=== PATIENT | female | born 1995 ===

== ENCOUNTER 2017-02-15 12:22 | Inpatient (IN) | payer MEDICAID, OTHER ==
[2017-02-15] MEDS ORDERED: Sodium Chloride 0.9% 1,000 ML IV STA (13:30)
[2017-02-15] MEDS ORDERED: Morphine 4 MG/ML VIAL ONE (13:35)
--- NOTE | 2017-02-15 13:43 | C.PDOC ---
History Of Present Illness Patient is a 21 year old female, with PMHx of anemia, asthma, bipolar disorder, presents to ED for evaluation of sudden onset of generalized abdominal pain associated with 3 episodes of bloody, non-bilious vomiting, and bloody diarrhea that developed this morning. Pt states that she only drank coffee this morning, and suddenly experienced these symptoms. Denies having similar symptoms in the past. LMP: 02/03/17. Denies fever, chest pain, or shortness of breath. Time Seen by Provider: 02/15/17 13:04 Chief Complaint (Nursing): Abdominal Pain History Per: Patient History/Exam Limitations: no limitations Current Symptoms Are (Timing): Still Present Radiation Of Pain To:: None Quality Of Discomfort: "Pain" Associated Symptoms: Nausea, Vomiting, Diarrhea. denies: Fever, Chills, Loss Of Appetite, Back Pain, Chest Pain, Constipation Exacerbating Factors: None Alleviating Factors: None Last Bowel Movement: Today Recent travel outside of the [place]: No Additional History Per: Patient Abnormal Vaginal Bleeding: No Past Medical History Reviewed: Historical Data, Nursing Documentation, Vital Signs Vital Signs: Last Vital Signs Temp 98.0 F 02/15/17 16:02 Pulse 73 02/15/17 18:34 Resp 16 02/15/17 18:34 BP 129/89 02/15/17 18:34 Pulse Ox 100 02/15/17 18:34 - Medical History PMH: Anemia, Asthma, Bipolar Disorder, Sexually Transmitted Disease (Chlamydia) Denies: Chronic Kidney Disease - [facility] Procedures INFLUENZA VACCINATION (05/13/14) Family History: States: Unknown Family Hx - Social History Hx Tobacco Use: Yes Hx Alcohol Use: Yes Hx Substance Use: Yes (marijuana) - Immunization History Hx Tetanus Toxoid Vaccination: No Hx Influenza Vaccination: No Hx Pneumococcal Vaccination: No Review Of Systems Except As Marked, All Systems Reviewed And Found Negative. Constitutional: Negative for: Fever, Chills Gastrointestinal: Positive for: Nausea, Vomiting, Abdominal Pain, Diarrhea Genitourinary: Positive for: Dysuria. Negative for: Frequency, Hematuria Musculoskeletal: Negative for: Back Pain Physical Exam - Physical Exam Additional Physical Exam Comments: Constitutional: Hysterical. Head: Normocephalic. Atraumatic. Eyes: PERRL. ENT: Moist mucous membranes. Neck: Supple. Cardiovascular: Regular rate. Radial pulse 2+ bilaterally. Chest: No tenderness. Respiratory: Clear to auscultation bilaterally. GI: Soft. Diffuse tenderness. Voluntary guarding. Nondistended. Rectal: Multiple hemorrhoids, no active bleeding, no thrombosed hemorrhoids. Back: No CVA tenderness. Musculoskeletal: No tenderness or swelling of extremities. Skin: No rash. Neurologic: Alert, no focal deficit. ED Course And Treatment - Laboratory Results Result Diagrams: 02/15/17 13:35 02/15/17 13:35 O2 Sat by Pulse Oximetry: 100 Medical Decision Making Medical Decision Making: Plan: * Blood work * Urinalysis * Abd & Pelvis CT * Morphine, IV fluids, Zofran * Reassess Progress note: Pelvis transvag US HISTORY: lower pelvic pain, r/o cyst vs torsion COMPARISON: None available. TECHNIQUE: Transabdominal and transvaginal FINDINGS: UTERUS: Measures 9.1 x 4.6 x 6.7 cm. Normal in size and appearance. No fibroid or other mass lesion seen. ENDOMETRIUM: Measures 22 mm in diameter. This is thickened. Please correlate with stage of menstrual cycle. No endometrial fluid. CERVIX: No cervical abnormality identified. RIGHT OVARY: Measures 4.3 x 2.6 x 3.7 cm. No solid mass. Normal flow. LEFT OVARY: Measures 3.6 x 3.2 x 3.4 cm. 2.5 cm simple cysts, likely physiologic. Normal flow. FREE FLUID: No significant free fluid noted. OTHER FINDINGS: None. IMPRESSION: No evidence of ovarian torsion. Unremarkable examination. Abd & Pelvis CT PROCEDURE: CT abdomen pelvis dated 02/15/2017. HISTORY: RLQ pain COMPARISON: Comparison made with prior CT scan of the abdomen and pelvis 03/25/2016 TECHNIQUE: Contiguous axial images of the pelvis performed in standard fashion following intravenous injection of approximately 100 cc of Visipaque 320 contrast material. . Oral contrast non not given. Coronal and Sagittal reformats generated. Radiation dose: Total exam DLP = 198.3 mGy-cm. This CT exam was performed using one or more of the following dose reduction techniques: Automated exposure control, adjustment of the mA and/or kV according to patient size, and/or use of iterative reconstruction technique. FINDINGS: LOWER THORAX: Lung bases clear. No infiltrate effusion or basilar pneumothorax. LIVER: The liver exhibits normal size measuring approximately 15.5 cm in CC dimension. Minor diffuse fatty hepatic infiltration. No obvious hepatic mass collection or calcification. Portal and splenic veins are opacified. GALLBLADDER AND BILE DUCTS: Gallbladder is physiologically distended. No evidence of intraluminal gallbladder calculi. PANCREAS: The pancreas appears unremarkable without mass collection or calcification. SPLEEN: Spleen exhibits normal size and attenuation pattern without mass collection or calcification ADRENALS: No adrenal lesions. KIDNEYS AND URETERS: Kidneys demonstrate symmetric nephrograms. No evidence of nephrolithiasis or hydronephrosis. BLADDER: Urinary bladder is appears incompletely distended which may account for slight thick-walled appearance ; rule out cystitis. No evidence of intraluminal urinary bladder calculi Prominent left ovary. Consider followup pelvic ultrasound. REPRODUCTIVE: The at endometrium is somewhat prominent felt to be secondary to the service secretary phase of the endometrial cycle. APPENDIX: What is felt to represent a normal partially air-filled appendix is best seen on coronal image number [id number]. No periappendiceal inflammatory changes. BOWEL: Evaluation of the bowel is limited due to the lack of oral contrast material. Stomach is incompletely distended which may account for slight thick-walled appearance. Visualized loops of small bowel exhibit normal contour and caliber. . . Large bowel appears grossly unremarkable with no definitive evidence of abnormal mural wall thickening. PERITONEUM: Unremarkable. No fluid collection. No free air. LYMPH NODES: Unremarkable. No enlarged lymph nodes. VASCULATURE: Unremarkable. No aortic aneurysm. BONES: No fracture or destructive lesion. OTHER FINDINGS: None. IMPRESSION: Mild wall thickening of the urinary bladder could be due to underdistention however possibility of cystitis should be excluded. Mild fatty hepatic infiltration. Prominent left ovary. . Consider followup pelvic ultrasound if indicated. Dr. Messer accepts patient to medical service. History of GI bleeding with anemia. Consult placed for GI [facility]. Dr. Messer also recommends consultation with Heme Onc with Dr. Sandhu, but could not find physician in directory. Will defer consultation to Dr. Messer. Clear liquid diet ordered. Disposition Discussed With : Malissa Messer Doctor Will See Patient In The: Hospital - Disposition Referrals: [facility] [Outside] Disposition: HOME/ ROUTINE Disposition Time: 17:35 Condition: FAIR Instructions: Ovarian Cyst (ED) Forms: [facility] (Serbian) - Clinical Impression Clinical Impression: Ovarian cyst, Anemia, GI bleed - Scribe Statement The provider has reviewed the documentation as recorded by the Rebecca Montelongo All medical record entries made by the Rebecca were at my direction and personally dictated by me. I have reviewed the chart and agree that the record accurately reflects my personal performance of the history, physical exam, medical decision making, and the department course for this patient. I have also personally directed, reviewed, and agree with the discharge instructions and disposition.
[2017-02-15 13:52] LABS: BASO # 0.1 K/uL (0.0-0.2); BASO % 0.9 % (0.0-2.0); EOS % 0.5 % (0.0-4.0); HEMATOCRIT 25.6 % (34.0-47.0); LYMPH # 0.9 K/uL (1.0-4.3); LYMPH % 13.4 % (20.0-40.0); MEAN CELL VOLUME 54.3 fL (81.0-99.0); MEAN CORPUSCULAR HGB CONC 27.6 g/dL (33.0-37.0); MEAN PLATELET VOLUME 9.3 fL (7.2-11.7); MONO # 0.4 K/uL (0.0-0.8); MONO % 6.5 % (0.0-10.0); RED CELL DISTRIBUTION WIDTH 19.2 % (11.5-14.5); WHITE BLOOD COUNT 6.6 K/uL (4.8-10.8)
[2017-02-15 13:59] LABS: CHLORIDE 103 mmol/L (98-107); SODIUM 136 mmol/L (132-148)
[2017-02-15 14:00] LABS: POTASSIUM 3.6 mmol/L (3.6-5.2)
[2017-02-15 14:01] LABS: GFR AFRICAN-AMERICAN > 60
[2017-02-15 14:02] LABS: ALB/GLOB RATIO 1.2 (1.0-2.1); ALKALINE PHOSPHATASE 62 U/L (38-126); ALT/SGPT 29 U/L (9-52); AST/SGOT 21 U/L (14-36); BILIRUBIN,TOTAL 0.6 mg/dL (0.2-1.3); BLOOD UREA NITROGEN 13 mg/dL (7-17); CARBON DIOXIDE 18 mmol/L (22-30); GLUCOSE,RANDOM 89 mg/dL (65-105); TOTAL PROTEIN 9.1 g/dL (6.3-8.3)
[2017-02-15 14:03] LABS: RBC URINE 442 /hpf (0-3); URINE BILIRUBIN NEGATIVE (NEGATIVE); URINE BLOOD 3+ (NEGATIVE); URINE COLOR Yellow (YELLOW); URINE GLUCOSE (UA) NORMAL (Normal); URINE KETONE TRACE mg/dL (NEGATIVE); URINE LEUKOCYTE ESTERASE TRACE Leu/uL (Negative); URINE PROTEIN 1+ mg/dL (NEGATIVE); WBC URINE 9 /hpf (0-5)
[2017-02-15] MEDS ORDERED: Iodixanol 320 MG/ML 100 ML BOTTLE IV ONE (14:37)
--- NOTE | 2017-02-15 15:45 | CT ---
PROCEDURE: CT abdomen pelvis dated 02/15/2017. HISTORY: RLQ pain COMPARISON: Comparison made with prior CT scan of the abdomen and pelvis 03/25/2016 TECHNIQUE: Contiguous axial images of the pelvis performed in standard fashion following intravenous injection of approximately 100 cc of Visipaque 320 contrast material. . Oral contrast non not given. Coronal and Sagittal reformats generated. Radiation dose: Total exam DLP = 198.3 mGy-cm. This CT exam was performed using one or more of the following dose reduction techniques: Automated exposure control, adjustment of the mA and/or kV according to patient size, and/or use of iterative reconstruction technique. FINDINGS: LOWER THORAX: Lung bases clear. No infiltrate effusion or basilar pneumothorax. LIVER: The liver exhibits normal size measuring approximately 15.5 cm in CC dimension. Minor diffuse fatty hepatic infiltration. No obvious hepatic mass collection or calcification. Portal and splenic veins are opacified. GALLBLADDER AND BILE DUCTS: Gallbladder is physiologically distended. No evidence of intraluminal gallbladder calculi. PANCREAS: The pancreas appears unremarkable without mass collection or calcification. SPLEEN: Spleen exhibits normal size and attenuation pattern without mass collection or calcification ADRENALS: No adrenal lesions. KIDNEYS AND URETERS: Kidneys demonstrate symmetric nephrograms. No evidence of nephrolithiasis or hydronephrosis. BLADDER: Urinary bladder is appears incompletely distended which may account for slight thick-walled appearance ; rule out cystitis. No evidence of intraluminal urinary bladder calculi Prominent left ovary. Consider followup pelvic ultrasound. REPRODUCTIVE: The at endometrium is somewhat prominent felt to be secondary to the pocket secretary assembler phase of the endometrial cycle. APPENDIX: What is felt to represent a normal partially air-filled appendix is best seen on coronal image number [id number]. No periappendiceal inflammatory changes. BOWEL: Evaluation of the bowel is limited due to the lack of oral contrast material. Stomach is incompletely distended which may account for slight thick-walled appearance. Visualized loops of small bowel exhibit normal contour and caliber. . . Large bowel appears grossly unremarkable with no definitive evidence of abnormal mural wall thickening. PERITONEUM: Unremarkable. No fluid collection. No free air. LYMPH NODES: Unremarkable. No enlarged lymph nodes. VASCULATURE: Unremarkable. No aortic aneurysm. BONES: No fracture or destructive lesion. OTHER FINDINGS: None. IMPRESSION: Mild wall thickening of the urinary bladder could be due to underdistention however possibility of cystitis should be excluded. Mild fatty hepatic infiltration. Prominent left ovary. . Consider followup pelvic ultrasound if indicated.
--- NOTE | 2017-02-15 17:32 | US ---
HISTORY: lower pelvic pain, r/o cyst vs torsion COMPARISON: None available. TECHNIQUE: Transabdominal and transvaginal FINDINGS: UTERUS: Measures 9.1 x 4.6 x 6.7 cm. Normal in size and appearance. No fibroid or other mass lesion seen. ENDOMETRIUM: Measures 22 mm in diameter. This is thickened. Please correlate with stage of menstrual cycle. No endometrial fluid. CERVIX: No cervical abnormality identified. RIGHT OVARY: Measures 4.3 x 2.6 x 3.7 cm. No solid mass. Normal flow. LEFT OVARY: Measures 3.6 x 3.2 x 3.4 cm. 2.5 cm simple cysts, likely physiologic. Normal flow. FREE FLUID: No significant free fluid noted. OTHER FINDINGS: None. IMPRESSION: No evidence of ovarian torsion. Unremarkable examination.
[2017-02-15] MEDS ORDERED: HYDROmorphone 0.5 mg/0.5 ml ISec IVP PRN (23:44)
[2017-02-15] MEDS ORDERED: Sodium Chloride 0.9% 1,000 ML IV SCH (23:45)
[2017-02-16 00:25] VITALS: BP 96/60; PULSE 70; RESP 20; TEMP 98; O2SAT 100
[2017-02-16] MEDS ORDERED: metroNIDAZOLE IV 500 mg/100 ml 500 MG/100 ML BAG IVPB SCH (01:00)
--- NOTE | 2017-02-16 10:32 | HP ---
CHIEF COMPLAINT: Abdominal pain. HISTORY OF PRESENT ILLNESS: Ms. Flor Garrett is a 21-year-old lady with past medical history of anemia, asthma and bipolar disorder who came to the emergency room for evaluation of sudden onset of generalized abdominal pain associated with 3 episodes of bloody nonbilious vomiting and bloody diarrhea that developed this morning. The patient states that she only drank coffee this morning and suddenly experienced these symptoms and denies having similar symptoms in the past. Last menstrual period was 02/03/2017. Denies fever or chills. No shortness of breath. The patient was seen in the hallway of the [facility] ER, her was on the bedside also. PAST MEDICAL HISTORY: Anemia, asthma, bipolar, sexually transmitted disease, Chlamydia. FAMILY HISTORY: Father and mother, noncontributory. HABITS: Tobacco; yes. Alcohol; yes. SUBSTANCE ABUSE: Yes marijuana. REVIEW OF SYSTEMS: The patient was seen and examined at the bedside in the emergency room, complaining about abdominal pain and nauseous, vomiting and diarrhea. No fever and no chills. Positive for dysuria. Negative frequency and hematuria, No back pain. PHYSICAL EXAMINATION: VITAL SIGNS: Temperature is 98, pulse is 73, respiratory rate is 15, and blood pressure is 120/89. HEENT: Head is normocephalic and atraumatic. Eyes: PERRLA. Extraocular muscles intact. Conjunctivae clear. Nose patent. Mucous membranes are moist. NECK: Supple. No carotid bruits. No JVD or thyromegaly. CHEST: Bilaterally symmetrical. HEART: S1 and S2 positive. LUNGS: Clear to auscultation. ABDOMEN: Soft. Tenderness all in 4 quadrants, voluntary guarding, and nondistended. No organomegaly. EXTREMITIES: No edema and no cyanosis. NEUROLOGIC: The patient is awake, alert, and moving all 4 extremities. No focal deficit. LABORATORY DATA: White blood cells of 6.6, hemoglobin of 7.1, hematocrit of 25.6, and platelets of 297. Sodium of 133, potassium of 3.6, BUN of 13, creatinine of 0.5, and glucose of 89. ASSESSMENT AND PLAN: Ms. Flor Garrett is a 21-year-old lady with anemia who came with intractable abdominal pain. Transabdominal and transvaginal ultrasound done. No evidence of ovarian torsion, unremarkable examination. No free fluid. CAT scan of the abdomen done which shows mild wall thickening of the urinary bladder could be due to undescended; however, possibility of cystitis should be excluded, mild fatty hepatic infiltrates, prominent left ovary. Gastrointestinal consult called with Dr. Nain Sherwood, and Hematology consult called with Dr. Yarbrough. Started clear liquid diet. Transvaginal ultrasound was canceled. The patient is having history of bipolar. Psychiatry consult called with Dr. Patricio Quintero also. Started hydromorphone, Protonix, NS, and Zofran. I will start antibiotics also. Repeat labs. Gastrointestinal and deep venous thrombosis prophylaxis. We will follow. Malissa Messer MD
--- NOTE | 2017-02-18 00:43 | DS ---
The patient is a 21-year-old female The patient was admitted on 02/15/2017 and left against medical advice last night. The patient was educated to stay home and got complete the treatment, but the patient refused. For more details see pasquale [facility]. Malissa Messer MD
== END 2017-02-16 01:45 | disposition left against medical advice (07) | DRG 175 ==
LOC: C.ER 12:22 → C.9E 18:30 → C.3T 20:43
PROVIDERS: ADMIT Internal Medicine; ATTEND Internal Medicine
DX: K92.0 Hematemesis (principal); D64.9 Anemia, unspecified; N83.209 Unspecified ovarian cyst, unspecified side; R19.7 Diarrhea, unspecified; F31.9 Bipolar disorder, unspecified; J45.909 Unspecified asthma, uncomplicated; F17.210 Nicotine dependence, cigarettes, uncomplicated; F10.10 Alcohol abuse, uncomplicated; F12.10 Cannabis abuse, uncomplicated; Z86.19 Personal history of other infectious and parasitic diseases

== ENCOUNTER 2017-02-16 01:58 | Inpatient (IN) | payer OTHER ==
[2017-02-16 02:36] VITALS: O2SAT 100
--- NOTE | 2017-02-16 03:45 | C.PDOC ---
History Of Present Illness 21 year old female who was admitted earlier today for GI bleed and anemia with a hemoglobin of 7.0. Patient states she had a misunderstanding with the staff on the floor and left the hospital; but reports she was called and told to come to the ER for readmission. Denies new complaints at this time. Time Seen by Provider: 02/16/17 02:24 Chief Complaint (Nursing): Abdominal Pain History Per: Patient History/Exam Limitations: no limitations Onset/Duration Of Symptoms: Hrs Current Symptoms Are (Timing): Still Present Location Of Pain/Discomfort: Diffuse Radiation Of Pain To:: None Quality Of Discomfort: Unable To Describe Associated Symptoms: Nausea, Vomiting, Diarrhea. denies: Fever, Chills Exacerbating Factors: None Alleviating Factors: None Recent travel outside of the [place]: No Abnormal Vaginal Bleeding: No Past Medical History Reviewed: Historical Data, Nursing Documentation, Vital Signs Vital Signs: Last Vital Signs Temp 98.3 F 02/16/17 04:55 Pulse 69 02/16/17 04:55 Resp 20 02/16/17 04:55 BP 106/65 02/16/17 04:55 Pulse Ox 100 02/16/17 04:55 - Medical History PMH: Anemia, Asthma, Bipolar Disorder, Personality Disorder (multiple personality disorder), Sexually Transmitted Disease (Chlamydia) Surgical History: No Surg Hx - [facility] Procedures INFLUENZA VACCINATION (05/13/14) Family History: States: Unknown Family Hx - Social History Hx Tobacco Use: Yes Hx Alcohol Use: Yes Hx Substance Use: Yes (marijuana) - Immunization History Hx Tetanus Toxoid Vaccination: Yes Hx Influenza Vaccination: Yes Hx Pneumococcal Vaccination: Yes Review Of Systems Constitutional: Negative for: Fever, Chills Gastrointestinal: Positive for: Nausea, Vomiting, Abdominal Pain, Diarrhea Physical Exam - Physical Exam Appears: Non-toxic Skin: Normal Color, Warm, Dry, No Rash Head: Atraumatic, Normacephalic Eye(s): bilateral: Normal Inspection, PERRL, EOMI Oral Mucosa: Moist Neck: Normal, Supple Chest: Symmetrical, No Tenderness Cardiovascular: Rhythm Regular, No Friction Rub, No Murmur Respiratory: Normal Breath Sounds, No Rales, No Rhonchi, No Wheezing Gastrointestinal/Abdominal: Bowel Sounds (active), Soft, Tenderness (Diffuse), Guarding (Voluntary), No Rebound Back: No CVA Tenderness Extremity: Normal ROM Neurological/Psych: Oriented x3, Normal Speech, Normal Cognition, Normal Motor, Normal Sensation Gait: Steady ED Course And Treatment O2 Sat by Pulse Oximetry: 100 (Room air) Pulse Ox Interpretation: Normal Medical Decision Making Medical Decision Making: Morphine administered. Patient readmitted to floor. Disposition - Disposition Disposition: HOME/ ROUTINE Disposition Time: 03:45 Condition: FAIR - Clinical Impression Clinical Impression: GI bleed, Anemia - Scribe Statement The provider has reviewed the documentation as recorded by the Scribclaribel Higuera All medical record entries made by the Rebecca were at my direction and personally dictated by me. I have reviewed the chart and agree that the record accurately reflects my personal performance of the history, physical exam, medical decision making, and the department course for this patient. I have also personally directed, reviewed, and agree with the discharge instructions and disposition.
[2017-02-16 05:11] VITALS: RESP 20
[2017-02-16 08:54] LABS: IRON 11 ug/dL (37-170)
[2017-02-16] MEDS ORDERED: Sodium Chloride 0.9% 1,000 ML IV SCH (09:00)
[2017-02-16] MEDS: HYDROmorphone 0.5 mg/0.5 ml ISec IVP PRN ×3 (09:26→17:44)
[2017-02-16 09:27] LABS: CHOLESTEROL 106 mg/dL (0-199)
--- NOTE | 2017-02-16 10:40 | CP.PCM.CON ---
<Susan Fuentes - Last Filed: 02/16/17 18:21> History of Present Illness - History of Present Illness History of Present Illness: Gastroenterology Fellow/PGY5 Consult Note 21 year old female with history of iron deficiency anemia, dysmenorrhea/ menorrhagia, BiPolar disorder, Personality disorder, Protein C/S deficiecy 2015 , and constipation presenting with diarrhea and vomiting. Patient notes having multiple episodes of bloody diarrhea and hematemesis with associated diffuse abdominal pain. No further episodes since admission. Denies constipation, melena , unintentional weight loss, fever, chills, sweats, back pain, eye pain/redness , kidney stones, mouth ulcers, or skin sores. Last menstrual period ending February 03 with menorrhagia. She states she was told she needed iron infusions and gynecology evaluation in the past but didn't follow through due to lack of insurance. No prior EGD or colonoscopy. Family- denies stomach cancer, colon cancer Social- marijuana use; denies tobacco/alcohol use Surgery-none Review of Systems - Review of Systems Review of Systems: 12-point review of systems negative except for as above Past Patient History - Infectious Disease Hx of Infectious Diseases: None - Tetanus Immunizations Tetanus Immunization: Unknown - Past Medical History & Family History Past Medical History?: Yes - Past Social History Smoking Status: Heavy Smoker > 10 Cigarettes Daily - CARDIAC Hx Cardiac Disorders: No - PULMONARY Hx Asthma: Yes - NEUROLOGICAL Hx Neurological Disorder: No - HEENT Hx HEENT Problems: No - RENAL Hx Chronic Kidney Disease: No - ENDOCRINE/METABOLIC Hx Endocrine Disorders: No - HEMATOLOGICAL/ONCOLOGICAL Hx Anemia: Yes - INTEGUMENTARY Hx Dermatological Problems: No - MUSCULOSKELETAL/RHEUMATOLOGICAL Hx Musculoskeletal Disorders: No Hx Falls: No - GASTROINTESTINAL Hx Gastrointestinal Disorders: No - GENITOURINARY/GYNECOLOGICAL Hx Sexually Transmitted Disorders: Yes (Chlamydia) - PSYCHIATRIC Hx Bipolar Disorder: Yes Hx Substance Use: Yes (marijuana) - SURGICAL HISTORY Hx Surgeries: No - ANESTHESIA Hx Anesthesia: No Hx Anesthesia Reactions: No Hx Malignant Hyperthermia: No Meds Allergies/Adverse Reactions: Allergies Allergy/AdvReac Type Severity Reaction Status Date / Time No Known Allergies Allergy Verified 02/16/17 02:35 - Medications Medications: Current Medications Hydromorphone HCl (Dilaudid) 0.25 mg IVP Q4H PRN PRN Reason: abdominal pain Last Admin: 02/16/17 09:26 Dose: 0.25 mg Sodium Chloride (Sodium Chloride 0.9%) 1,000 mls @ 100 mls/hr IV .Q10H [facility] Last Admin: 02/16/17 09:28 Dose: 100 mls/hr Metronidazole (Flagyl) 500 mg in 100 mls @ 100 mls/hr IVPB Q8 [facility] Ceftriaxone Sodium 1 gm/ (Sodium Chloride) 100 mls @ 100 mls/hr IVPB DAILY [facility] Ondansetron HCl (Zofran Inj) 4 mg IVP Q6H PRN PRN Reason: nausea and vomiting Pantoprazole Sodium (Protonix Inj) 40 mg IVP DAILY [facility] Last Admin: 02/16/17 09:28 Dose: 40 mg Pneumococcal Polyvalent Vaccine (Pneumovax 23 Vaccine) 0.5 ml IM .ONCE ONE Stop: 02/18/17 10:01 Physical Exam - Constitutional Appears: Non-toxic, No Acute Distress - Head Exam Head Exam: ATRAUMATIC, NORMOCEPHALIC - Eye Exam Eye Exam: EOMI, PERRL Pupil Exam: PERRL. absent: Miosis, Mydriatic - ENT Exam ENT Exam: Mucous Membranes Moist, Normal Oropharynx - Neck Exam Neck exam: Positive for: Normal Inspection - Respiratory Exam Respiratory Exam: Clear to Auscultation Bilateral. absent: Rales, Rhonchi, Wheezes - Cardiovascular Exam Cardiovascular Exam: RRR, +S1, +S2. absent: Gallop, Rubs - GI/Abdominal Exam GI & Abdominal Exam: Normal Bowel Sounds, Soft. absent: Distended, Firm, Guarding, Organomegaly, Rebound, Rigid, Tenderness - Rectal Exam Rectal Exam: Hemorrhoids. absent: Black Stool, Bloody Stool, Fecal Impaction Additional comments: yellow scant stool present in rectal vault - Extremities Exam Extremities exam: Positive for: full ROM. Negative for: pedal edema - Neurological Exam Neurological exam: Alert - Psychiatric Exam Psychiatric exam: Normal Affect, Normal Mood - Skin Skin Exam: Dry, Intact, Normal Color, Warm Results - Vital Signs Recent Vital Signs: Last Vital Signs Temp 98.3 F 02/16/17 07:24 Pulse 72 02/16/17 07:24 Resp 20 02/16/17 07:24 BP 107/61 02/16/17 07:24 Pulse Ox 100 02/16/17 07:24 - Labs Result Diagrams: 02/16/17 13:38 02/16/17 13:38 Labs: Laboratory Results - last 24 hr 02/16/17 02/16/17 02/16/17 08:25 08:25 08:25 Iron 11 L TIBC 531 H % Saturation 2 L Ferritin 2.7 Triglycerides 49 Cholesterol 106 LDL Cholesterol Direct 64 HDL Cholesterol 44 Vitamin B12 492 Assessment & Plan - Assessment and Plan (Free Text) Assessment: 21 year old female with history of iron deficiency anemia, dysmenorrhea/ menorrhagia, BiPolar disorder, Personality disorder, Protein C/S deficiency 2014 , and constipation presenting with diarrhea and vomiting. Active treatment of iron deficiency anemia with endorsed GI blood loss. No prior EGD or colonoscopy Plan: >rectal-yellow, FOBT negative >receiving 2Units pRBCs >hemodynamically stable >no overt signs of GI blood loss >continue PPI >clear liquid diet >bowel prep Saturday >NPO after midnight on Saturday >EGD/colonoscopy Saturday to rule out GI blood loss >will follow clinical course <Huong Stacy MD - Last Filed: 02/16/17 18:47> Meds - Medications Medications: Current Medications Hydromorphone HCl (Dilaudid) 0.25 mg IVP Q4H PRN PRN Reason: abdominal pain Last Admin: 02/16/17 17:44 Dose: 0.25 mg Sodium Chloride (Sodium Chloride 0.9%) 1,000 mls @ 100 mls/hr IV .Q10H [facility] Last Admin: 02/16/17 09:28 Dose: 100 mls/hr Metronidazole (Flagyl) 500 mg in 100 mls @ 100 mls/hr IVPB Q8 [facility] Last Admin: 02/16/17 14:57 Dose: 100 mls/hr Ceftriaxone Sodium 1 gm/ (Sodium Chloride) 100 mls @ 100 mls/hr IVPB DAILY [facility] Last Admin: 02/16/17 11:28 Dose: 100 mls/hr Ondansetron HCl (Zofran Inj) 4 mg IVP Q6H PRN PRN Reason: nausea and vomiting Pantoprazole Sodium (Protonix Inj) 40 mg IVP DAILY [facility] Last Admin: 02/16/17 09:28 Dose: 40 mg Pneumococcal Polyvalent Vaccine (Pneumovax 23 Vaccine) 0.5 ml IM .ONCE ONE Stop: 02/18/17 10:01 Results - Vital Signs Recent Vital Signs: Last Vital Signs Temp 98 F 02/16/17 15:00 Pulse 83 02/16/17 15:00 Resp 20 02/16/17 15:00 BP 99/63 L 02/16/17 15:00 Pulse Ox 100 02/16/17 15:00 - Labs Result Diagrams: 02/16/17 13:38 02/16/17 13:38 Labs: Laboratory Results - last 24 hr 02/16/17 02/16/17 02/16/17 08:25 08:25 08:25 WBC RBC Hgb Hct MCV MCH MCHC RDW Plt Count MPV Neut % (Auto) Lymph % (Auto) [place] % (Auto) Eos % (Auto) Baso % (Auto) Neut # Lymph # [place] # Eos # Baso # PT INR Sodium Potassium Chloride Carbon Dioxide Anion Gap BUN Creatinine Est GFR ( Amer) Est GFR (Non-Af Amer) Random Glucose Calcium Iron 11 L TIBC 531 H % Saturation 2 L Ferritin 2.7 Total Bilirubin AST ALT Alkaline Phosphatase Total Protein Albumin Globulin Albumin/Globulin Ratio Triglycerides 49 Cholesterol 106 LDL Cholesterol Direct 64 HDL Cholesterol 44 Vitamin B12 492 Folate 10.6 Urine Opiates Screen Urine Methadone Screen Ur Barbiturates Screen Ur Phencyclidine Scrn Ur Amphetamines Screen U Benzodiazepines Scrn U Oth Cocaine Metabols U Cannabinoids Screen Blood Type Antibody Screen 02/16/17 02/16/17 02/16/17 13:38 13:38 13:38 WBC 3.7 L RBC 4.06 Hgb 6.0 L* Hct 22.3 L MCV 54.9 L MCH 14.8 L MCHC 27.0 L RDW 19.5 H Plt Count 223 MPV 8.7 Neut % (Auto) 34.6 L Lymph % (Auto) 52.6 H [place] % (Auto) 10.6 H Eos % (Auto) 0.8 Baso % (Auto) 1.4 Neut # 1.3 L Lymph # 2.0 [place] # 0.4 Eos # 0.0 Baso # 0.1 PT 13.8 H INR 1.2 Sodium 134 Potassium 3.6 Chloride 103 Carbon Dioxide 20 L Anion Gap 15 BUN 9 Creatinine 0.6 L Est GFR ( Amer) > 60 Est GFR (Non-Af Amer) > 60 Random Glucose 130 H Calcium 8.7 Iron TIBC % Saturation Ferritin Total Bilirubin 0.7 AST 17 ALT 24 Alkaline Phosphatase 44 Total Protein 6.2 L Albumin 4.0 Globulin 2.2 Albumin/Globulin Ratio 1.8 Triglycerides Cholesterol LDL Cholesterol Direct HDL Cholesterol Vitamin B12 Folate Urine Opiates Screen Urine Methadone Screen Ur Barbiturates Screen Ur Phencyclidine Scrn Ur Amphetamines Screen U Benzodiazepines Scrn U Oth Cocaine Metabols U Cannabinoids Screen Blood Type Antibody Screen 02/16/17 02/16/17 14:58 17:10 WBC RBC Hgb Hct MCV MCH MCHC RDW Plt Count MPV Neut % (Auto) Lymph % (Auto) [place] % (Auto) Eos % (Auto) Baso % (Auto) Neut # Lymph # [place] # Eos # Baso # PT INR Sodium Potassium Chloride Carbon Dioxide Anion Gap BUN Creatinine Est GFR ( Amer) Est GFR (Non-Af Amer) Random Glucose Calcium Iron TIBC % Saturation Ferritin Total Bilirubin AST ALT Alkaline Phosphatase Total Protein Albumin Globulin Albumin/Globulin Ratio Triglycerides Cholesterol LDL Cholesterol Direct HDL Cholesterol Vitamin B12 Folate Urine Opiates Screen Positive H Urine Methadone Screen Negative Ur Barbiturates Screen Negative Ur Phencyclidine Scrn Negative Ur Amphetamines Screen Negative U Benzodiazepines Scrn Negative U Oth Cocaine Metabols Negative U Cannabinoids Screen Positive Blood Type A POSITIVE Antibody Screen Negative Attending/Attestation - Attestation I have personally seen and examined this patient.: Yes I have fully participated in the care of the patient.: Yes I have reviewed all pertinent clinical information: Yes Notes (Text): 02/16/17 18:38 Patient seen with GI fellow. This is a 21 year old female with history of iron deficiency anemia, dysmenorrhea/menorrhagia, bipolar disorder, personality disorder, protein C/S deficiency, and constipation presenting with iron deficiency anemia with history of rectal bleeding and menorrhagia. Patient has been on long standing iron infusions. hemodynamically stable with no overt sign of GI bleeding. Rectal exam with yellow stool. Continue PPI. Discussed EGD/ colonoscopy for Saturday. Clear liquid diet. NPO past midnight Saturday
[2017-02-16 11:57] LABS: FOLATE 10.6 ng/mL
[2017-02-16 13:45] LABS: BASO # 0.1 K/uL (0.0-0.2); BASO % 1.4 % (0.0-2.0); EOS % 0.8 % (0.0-4.0); HEMATOCRIT 22.3 % (34.0-47.0); LYMPH % 52.6 % (20.0-40.0); MEAN CELL VOLUME 54.9 fL (81.0-99.0); MEAN CORPUSCULAR HEMOGLOBIN 14.8 pg (27.0-31.0); MEAN PLATELET VOLUME 8.7 fL (7.2-11.7); MONO # 0.4 K/uL (0.0-0.8); MONO % 10.6 % (0.0-10.0); NRBC % 0.2 % (0.0-2.0); RED CELL DISTRIBUTION WIDTH 19.5 % (11.5-14.5); WHITE BLOOD COUNT 3.7 K/uL (4.8-10.8)
[2017-02-16 13:48] LABS: INR 1.2
[2017-02-16 13:56] LABS: CHLORIDE 103 mmol/L (98-107); POTASSIUM 3.6 mmol/L (3.6-5.2); SODIUM 134 mmol/L (132-148)
[2017-02-16 13:58] LABS: AST/SGOT 17 U/L (14-36); BILIRUBIN,TOTAL 0.7 mg/dL (0.2-1.3); CARBON DIOXIDE 20 mmol/L (22-30); GFR AFRICAN-AMERICAN > 60
[2017-02-16 13:59] LABS: ALB/GLOB RATIO 1.8 (1.0-2.1); ALKALINE PHOSPHATASE 44 U/L (38-126); ALT/SGPT 24 U/L (9-52); BLOOD UREA NITROGEN 9 mg/dL (7-17); CALCIUM 8.7 mg/dl (8.6-10.4); GLUCOSE,RANDOM 130 mg/dL (65-105); TOTAL PROTEIN 6.2 g/dL (6.3-8.3)
[2017-02-16] MEDS ORDERED: metroNIDAZOLE IV 500 mg/100 ml 500 MG/100 ML BAG IVPB SCH (14:00)
[2017-02-16 16:41] VITALS: BP 99/63; PULSE 83; TEMP 98
--- NOTE | 2017-02-17 12:48 | HP ---
CHIEF COMPLAINT: Abdominal pain. HISTORY OF PRESENT ILLNESS: The patient is a 21-year-old, was admitted on for GI bleeding and anemia with hemoglobin 7.0. The patient stated that she was misunderstanding with the staff on the floor and left the hospital, but reports she was called and told to come to ER for readmission. Denies any new complaints. No nausea or vomiting. Right now, no hematuria, no hematochezia. PAST MEDICAL HISTORY: Anemia, asthma, bipolar disorder, multiple personality disorder, and sexually transmitted disease. FAMILY HISTORY: Father and mother, noncontributory. HABITS: Smoking, yes. Alcohol, yes. Drug abuse, yes, especially marijuana. REVIEW OF SYSTEMS: The patient was seen and examined at the bedside in the room, looking comfortable, pain is getting better. No nausea, vomiting or diarrhea. No hematuria or hematochezia. No swelling of the legs. No chest pain, no palpitation. No headache, no dizziness. No fever, no chills. PHYSICAL EXAMINATION: VITAL SIGNS: Temperature 98.3, pulse 69, respiratory rate 20, and blood pressure 106/55. HEENT: Head is normocephalic and atraumatic. Eyes: PERRLA. Extraocular muscles intact. Conjunctivae clear. Nose patent. NECK: Supple. No carotid bruits. No JVD or thyromegaly. CHEST: Bilaterally symmetrical. HEART: S1 and S2 positive. LUNGS: Clear to auscultation. ABDOMEN: Soft. Bowel sounds positive. No organomegaly. EXTREMITIES: No edema and no cyanosis. NEUROLOGIC: The patient is awake, alert, and moving all 4 extremities. No focal deficit. LABORATORY DATA: White blood cells 3.7, hemoglobin 6.0, hematocrit 22.8, and platelets 223. Sodium 135, potassium 3.6, BUN 9, creatinine 0.6, glucose 130, and iron 11. ASSESSMENT AND PLAN: The patient is a 21-year-old lady with leukopenia, anemia, hyperglycemia, iron deficiency. Drug screening is positive for opiates and positive for cannabinoids. The patient was admitted for abdominal pain; GI bleeding, both upper and lower as per patient; history of asthma; bipolar disorder; multiple personality disorder; sexually transmitted disease, especially Chlamydia; history of alcohol abuse; history of drug abuse; history of smoking, was admitted actually on 02/12/2017, signed against medical advice, now she came second time and admitted on 02/16/2017, but signed again against medical advice. I educated the patient, nurses educated the patient and house physician educated the patient, but still she left. Malissa Messer MD
[2017-02-18] MEDS ORDERED: Pneumococcal 23-Valent Vaccine IM ONE (10:00)
[2017-02-18] MEDS ORDERED: Influenza Vaccine 60 mcg/0.5 mL SYR (4YR UP) IM ONE (10:00)
--- NOTE | 2017-02-18 19:39 | DS ---
SUMMARY: The patient signed against medical advice. Length of time discussion done. Education done, but still the patient refused to stay. She was informed she can , in case happen come to emergency room back. For more details, see my H and P. Malissa Messer MD MTDD
== END 2017-02-16 20:19 | disposition left against medical advice (07) | DRG 175 ==
LOC: C.ER 01:58 → C.9E 03:45 → C.3T 04:17
PROVIDERS: ADMIT Internal Medicine; ATTEND Internal Medicine
DX: K92.2 Gastrointestinal hemorrhage, unspecified (principal); D50.9 Iron deficiency anemia, unspecified; D72.819 Decreased white blood cell count, unspecified; F31.9 Bipolar disorder, unspecified; F17.210 Nicotine dependence, cigarettes, uncomplicated; N92.0 Excessive and frequent menstruation with regular cycle; F44.81 Dissociative identity disorder; J45.909 Unspecified asthma, uncomplicated; F12.10 Cannabis abuse, uncomplicated; Z86.19 Personal history of other infectious and parasitic diseases